=== PATIENT | female | born 1945 | race African-American/Black ===

== ENCOUNTER 2018-04-11 21:30 | Inpatient (IN) ==
[2018-04-11] MEDS: NS 1000 ML 1,000 ML IV SCH (22:13)
[2018-04-11 22:25] LABS: BASOPHILS # (AUTO) 0.1 X10^3/uL (0.0-0.1); BASOPHILS % (AUTO) 0.7 % (0.2-1.0); EOSINOPHILS # (AUTO) 0.3 x10^3/uL (0.0-0.2); HEMATOCRIT 24.5 % (36.0-47.0); HEMOGLOBIN 8.4 g/dL (12.0-16.0); LYMPHOCYTES # (AUTO) 3.9 X10^3/uL (1.3-2.9); LYMPHOCYTES % (AUTO) 36.6 % (21.0-51.0); MEAN CORPUSCULAR HEMOGLOBIN 29.1 pg (27.0-34.0); MEAN CORPUSCULAR HGB CONC 34.4 g/dL (33.0-35.0); MEAN CORPUSCULAR VOLUME 84.7 fL (80.0-100.0); MEAN PLATELET VOLUME 8.5 fL (7.4-11.0); MONOCYTES # (AUTO) 0.6 x10^3/uL (0.3-0.8); MONOCYTES % (AUTO) 5.5 % (0.0-13.0); NEUTROPHILS # (AUTO) 5.8 x10^3/uL (2.2-4.8); NEUTROPHILS % (AUTO) 54.2 % (42.0-75.0); PLATELET COUNT 189 X10^3/uL (150.0-450.0); RED BLOOD COUNT 2.89 X10^6/uL (3.5-5.4); RED CELL DISTRIBUTION WIDTH 13.2 % (11.6-16.5); WHITE BLOOD COUNT 10.7 X10^3/uL (3.6-10.0)
[2018-04-11 22:34] LABS: BLOOD UREA NITROGEN 17 mg/dL (7-18); CALCIUM 8.4 mg/dL (8.5-10.1); CARBON DIOXIDE 23.8 mmol/L (21-32); CHLORIDE 102 mmol/L (98-107); COR NA(FOR HYPERGLY) 139 mmol/L (136-145); CREATININE 0.72 mg/dL (0.55-1.02); SODIUM 138 mmol/L (136-145); eGFR NON BLACK RACES > 60 (>60)
[2018-04-11 22:38] LABS: ALANINE AMINOTRANSFERASE 18 Units/L (12-78); ALBUMIN 2.8 g/dL (3.4-5.0); ALKALINE PHOSPHATASE 66 Units/L (46-116); AMYLASE 38 Units/L (25-115); ASPARTATE AMINO TRANSFERASE 7 Units/L (15-37); COR CA(FOR HYPOALB) 9.4 mg/dL (8.5-10.1); LIPASE 110 Units/L (73-393)
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
[2018-04-11] MEDS ORDERED: ZOFRAN SYRUP 4 MG UDC PO ONE (23:10)
[2018-04-11] MEDS ORDERED: K-LYTE EFFERVESCENT PO ONE (23:14)
[2018-04-11] MEDS ORDERED: PROTONIX INJ 40 MG VIAL ONE (23:20)
[2018-04-11] MEDS ORDERED: K-LYTE EFFERVESCENT ONE (23:20)
[2018-04-11] MEDS ORDERED: NS 100 ML IV 100 ML IV ONE (23:21)
[2018-04-11] MEDS ORDERED: ZOFRAN SYRUP 4 MG UDC ONE (23:21)
[2018-04-11] MEDS: PROTONIX INJ 40 MG VIAL 80 MG in NS 100 ML IV 80 ML IV SCH (23:40)
[2018-04-12 00:11] LABS: HEMOGLOBIN 7.7 g/dL (12.0-16.0)
[2018-04-12 00:14] LABS: HEMATOCRIT 22.4 % (36.0-47.0)
[2018-04-12] MEDS ORDERED: ZOFRAN INJ 4 MG VIAL IVP PRN (00:40)
[2018-04-12] MEDS ORDERED: TYLENOL 325 MG TAB PO ONE (00:54)
[2018-04-12] MEDS ORDERED: BENADRYL INJ 50 MG VIAL IV ONE (00:54)
--- NOTE | 2018-04-12 01:02 | DR.GIBLEED ---
HPI Time Seen Time seen: 21:50 Primary Care Physician Primary Care Physician: YE HPI Comment HPI Comment: PATIENT SAID BLEEDING IS GETTING WORSE AND SHE IS WEAK AND DIZZY. SHE DENIES USE ANTICOAGULATING MEDICATIONS. DENIES FEVER. ABDOMINAL PAIN IS WORSE IN LLQ AREA. DENIES HEMATEMESIS. NAUSEATED BUT NOOT VOMITING. Complaints Chief Complaint Doctors Comments: GI BLEEDING WITH LOWER ABDOMINAL PAIN 3 DAYS. Chief Complaint:: ABDOMNIAL PAIN AND RECTAL BLEEDING WITH BOWEL MOVEMENT SINCE TUESDAY. Reviewed Nurses Notes Reviewed: Yes Source History Provided: Patient, Family Member and EMS Mode of Arrival Mode of Arrival: EMS Timing Onset of Chief Complaint: 04/09/18 Duration Bleeding: Currently Present Duration: Days Quality Vomitus: None Stools: Bright Red Blood History Of: None Prehospital Care:: None Severity Severity: Moderate Measure: Cups Context Onset: Spontaneous and After bowel movement (LAST EPISODE WITHOUT BM.) Recent Use Of: None Associated Signs and Symptoms Associated Signs and Symptoms: Abdominal Pain and Faintness (NEAR SYNCOPAL FEELING TODAY.) PMH PMH Past Medical History: Yes Past Medical History: Hypertension Past Surgical History: No Family History History of Family Medical Conditions: Yes Family Medical History: Diabetes Mellitus and Hypertension Social History Does patient currently use any type of tobacco product: Yes Have you used tobacco products in the last 12 months: Yes Type of Tobacco Use: Cigarettes Does any household member use tobacco: No Alcohol Use: None Do you use any recreational Drugs:: No Lives With: Family Lives Where: Home infectious screening In the last 2 months have you had wt loss of >10#?: NO Have you had fever, night sweats or hemotysis?: No Have you traveled outside the country in the last 6 months?: No Isolation: Standard ROS Review of Systems Constitutional: Weakness and Fatigue; negative Chills, Diaphoresis and Fever Eyes: Other (CONJUNCTIVA PALE.) ENTM: No Symptoms Reported Respiratoy: Short of Breath Cardiovascular: negative Syncope (NEAR SYMCOPAL FEELING.) Gastrointestinal/Abdominal: Abdominal Pain, Nausea and Other (GI BLEEDING.) Genitourinary: Pain and Other (RECTAL BEEDING.) Neurological: Anxiety, Weakness and Dizziness Musculoskeletal: No Symptoms Reported Integumentary: No Symptoms Reported Hematologic/Lymphatic: No Symptoms Reported Endocrine: No Symptoms Reported Psychiatric: No Symptoms Reported All Other Systems: Reviewed and Negative PE Vital Signs Vitals: Pulse Rate 92 Respiratory Rate 18 Blood Pressure 155/68 O2 Sat by Pulse Oximetry 98 General Limitations: No Limitations General Appearance: Alert and In No Apparent Distress Head Head Exam: Normal Inspection, Atraumatic and Normocephalic Eyes Eye exam: PERRL, EOMI and Other (CONJUNCTIVA PALE.); negative Scleral Icterus ENT ENT Exam: Normal Exam, Normal Oropharynx and Normal External Ear Exam Neck Neck Exam: Normal Inspection and Trachea Midline; negative Tenderness and Meningismus Chest Chest Inspection: Normal Inspection and Symmetric Chest Wall Rise Respiratory Respiratory Exam: Normal Lung Sounds Bilat; negative Chest Wall Tenderness Respiratory Exam: Bilateral: Clear to Auscultation Cardiovascular Cardiovascular Exam: Regular Rate, Normal Rhythm and Normal Heart Sounds Abdominal Exam Abdominal Exam: Normal Bowel Sounds, Soft and Tenderness Abdominal Tenderness: LLQ and Diffuse Rectal Rectal Exam: Normal Rectal Tone, Heme (+) Stool, Bloody Stool and Other; negative Normal Inspection, Hemorrhoids and Tenderness Extremities Extremities Exam: Normal Inspection Back Back Exam: Normal Inspection Neurologic Neurological Exam: Alert, Oriented X3 and CN II-XII Intact; negative Motor Sensory Deficit Psychiatric Psychiatric Exam: Normal Affect and Normal Mood Skin Skin Exam: Warm, Dry and Intact DIFFERENTIAL DIAGNOSIS Additional Information Obtained Additional Information Obtained From: Family Differential Diagnosis Differential Diagnosis: Angiodysplasia, Diverticulosis, Gastritis, Inflammatory BD, PUD and Other (BOWEL OBST, DIVERTICULITIS) COURSE Treatment Treatment: SEE ORDERS. Consultation Consultation Comments: DISCUSS PATIENT WITH DR. PEDROZA. HE WILL ADMIT PATIENT. Education/Counseling Education/Counseling: Patient, Family and Education Educated On: Diagnosis ROR Labs Reviewed Laboratory Results Reviewed?: Yes Result Diagrams: 04/11/18 23:59 04/11/18 22:19 Laboratory: WBC 10.7 X10^3/uL (3.6-10.0) H 04/11/18 22:19 RBC 2.89 X10^6/uL (3.5-5.4) L 04/11/18 22:19 Hgb 7.7 g/dL (12.0-16.0) L 04/11/18 23:59 Hct 22.4 % (36.0-47.0) L 04/11/18 23:59 MCV 84.7 fL (80.0-100.0) 04/11/18 22:19 MCH 29.1 pg (27.0-34.0) 04/11/18 22:19 MCHC 34.4 g/dL (33.0-35.0) 04/11/18 22:19 RDW 13.2 % (11.6-16.5) 04/11/18 22:19 Plt Count 189 X10^3/uL (150.0-450.0) 04/11/18 22:19 MPV 8.5 fL (7.4-11.0) 04/11/18 22:19 Neut % (Auto) 54.2 % (42.0-75.0) 04/11/18 22:19 Lymph % (Auto) 36.6 % (21.0-51.0) 04/11/18 22:19 [place] % (Auto) 5.5 % (0.0-13.0) 04/11/18 22:19 Eos % (Auto) 3.0 % (0.9-2.9) H 04/11/18 22:19 Baso % (Auto) 0.7 % (0.2-1.0) 04/11/18 22:19 Neut # (Auto) 5.8 x10^3/uL (2.2-4.8) H 04/11/18 22:19 Lymph # (Auto) 3.9 X10^3/uL (1.3-2.9) H 04/11/18 22:19 [place] # (Auto) 0.6 x10^3/uL (0.3-0.8) 04/11/18 22:19 Eos # (Auto) 0.3 x10^3/uL (0.0-0.2) H 04/11/18 22:19 Baso # (Auto) 0.1 X10^3/uL (0.0-0.1) 04/11/18 22:19 Absolute Nucleated RBC 0.0 /100WBC 04/11/18 22:19 INR Target Range - 04/11/18 22:19 INR 1.08 (0.8-1.3) 04/11/18 22:19 APTT 26.4 SECONDS (22.9-36.5) 04/11/18 22:19 PTT Comment - 04/11/18 22:19 Sodium 138 mmol/L (136-145) 04/11/18 22:19 Corrected Sodium 139 mmol/L (136-145) 04/11/18 22:19 Potassium 3.0 mmol/L (3.5-5.1) L* 04/11/18 22:19 Chloride 102 mmol/L (98-107) 04/11/18 22:19 Carbon Dioxide 23.8 mmol/L (21-32) 04/11/18 22:19 BUN 17 mg/dL (7-18) 04/11/18 22:19 Creatinine 0.72 mg/dL (0.55-1.02) 04/11/18 22:19 Est GFR (MDRD) Af Amer > 60 (>60) 04/11/18 22:19 Est GFR (MDRD) Non-Af > 60 (>60) 04/11/18 22:19 Glucose 131 mg/dL (65-99) H 04/11/18 22:19 Calcium 8.4 mg/dL (8.5-10.1) L 04/11/18 22:19 Corrected Calcium 9.4 mg/dL (8.5-10.1) 04/11/18 22:19 Total Bilirubin 0.10 mg/dL (0.2-1.0) L 04/11/18 22:19 AST 7 Units/L (15-37) L 04/11/18 22:19 ALT 18 Units/L (12-78) 04/11/18 22:19 Alkaline Phosphatase 66 Units/L (46-116) 04/11/18 22:19 Total Protein 6.0 g/dL (6.4-8.2) L 04/11/18 22:19 Albumin 2.8 g/dL (3.4-5.0) L 04/11/18 22:19 Globulin 3.2 g/dL (2.5-4.5) 04/11/18 22:19 Albumin/Globulin Ratio 0.9 Ratio (1.1-2.1) L 04/11/18 22:19 Amylase 38 Units/L (25-115) 04/11/18 22:19 Lipase 110 Units/L (73-393) 04/11/18 22:19 Stool Description Fob tube 04/11/18 22:02 Stl Occult Blood (IFOB) Positive (NEGATIVE) A 04/11/18 22:02 Diagnosis Discharge Problem: Abdominal pain, Acute GI bleeding, Anemia, Acute hypokalemia
[2018-04-12 02:12] VITALS: BMI 18.1
[2018-04-12] MEDS ORDERED: NS 500 ML IV 500 ML IV ONE (02:47)
[2018-04-12] MEDS: NS 1000 ML 1,000 ML IV SCH ×2 (05:24→13:08)
[2018-04-12 07:52] LABS: BASOPHILS # (AUTO) 0.1 X10^3/uL (0.0-0.1); EOSINOPHILS # (AUTO) 0.2 x10^3/uL (0.0-0.2); EOSINOPHILS % (AUTO) 1.5 % (0.9-2.9); HEMATOCRIT 22.3 % (36.0-47.0); HEMOGLOBIN 7.8 g/dL (12.0-16.0); LYMPHOCYTES # (AUTO) 4.3 X10^3/uL (1.3-2.9); LYMPHOCYTES % (AUTO) 37.4 % (21.0-51.0); MEAN CORPUSCULAR HEMOGLOBIN 29.5 pg (27.0-34.0); MEAN CORPUSCULAR HGB CONC 35.2 g/dL (33.0-35.0); MEAN PLATELET VOLUME 9.4 fL (7.4-11.0); MONOCYTES # (AUTO) 0.7 x10^3/uL (0.3-0.8); MONOCYTES % (AUTO) 6.2 % (0.0-13.0); NEUTROPHILS # (AUTO) 6.2 x10^3/uL (2.2-4.8); NEUTROPHILS % (AUTO) 53.9 % (42.0-75.0); PLATELET COUNT 144 X10^3/uL (150.0-450.0); RED BLOOD COUNT 2.65 X10^6/uL (3.5-5.4); RED CELL DISTRIBUTION WIDTH 13.6 % (11.6-16.5); WHITE BLOOD COUNT 11.6 X10^3/uL (3.6-10.0)
[2018-04-12 07:58] LABS: ANISOCYTOSIS SLIGHT; HYPOCHROMASIA 1+; PLATELET MORPHOLOGY COMMENT NORMAL (NORMAL)
[2018-04-12 08:00] LABS: ALANINE AMINOTRANSFERASE 15 Units/L (12-78); ALBUMIN 2.3 g/dL (3.4-5.0); ALKALINE PHOSPHATASE 51 Units/L (46-116); ASPARTATE AMINO TRANSFERASE 8 Units/L (15-37); BLOOD UREA NITROGEN 19 mg/dL (7-18); CALCIUM 7.5 mg/dL (8.5-10.1); CARBON DIOXIDE 26.2 mmol/L (21-32); CHLORIDE 107 mmol/L (98-107); COR CA(FOR HYPOALB) 8.9 mg/dL (8.5-10.1); COR NA(FOR HYPERGLY) 140 mmol/L (136-145); CREATININE 0.59 mg/dL (0.55-1.02); SODIUM 140 mmol/L (136-145); TOTAL PROTEIN 4.9 g/dL (6.4-8.2); eGFR NON BLACK RACES > 60 (>60)
[2018-04-12] MEDS ORDERED: NS 500 ML IV 500 ML IV SCH ×2 (08:00→10:00)
[2018-04-12] MEDS ORDERED: CIPRO IV 400 MG PREMIX* 400 MG/200 ML IV.SOLN. IV SCH (09:00)
[2018-04-12] MEDS ORDERED: FLAGYL IV PREMIX 500 MG BAG 500 MG/100 ML BAG IV SCH (09:00)
[2018-04-12] MEDS: PROTONIX INJ 40 MG VIAL 80 MG in NS 100 ML IV 80 ML IV SCH ×2 (09:57→10:35)
[2018-04-12] MEDS ORDERED: K-LYTE EFFERVESCENT PO PRN ×2 (10:36→10:37)
[2018-04-12] MEDS ORDERED: POTASSIUM CHLORIDE LIQ 20 MEQ UDC PO PRN (10:36)
[2018-04-12] MEDS ORDERED: POTASSIUM CHL 40 MEQ/NS 0.45% 500 ML IV PRN (10:36)
[2018-04-12] MEDS ORDERED: POTASSIUM CHL 60 MEQ/NS 0.45% 500 ML IV PRN (10:36)
[2018-04-12] MEDS ORDERED: K-RIDER 10 MEQ/NS 100 ML 10 MEQ/100 ML BAG IV PRN ×2 (10:36→10:37)
[2018-04-12 12:01] LABS: HEMATOCRIT 22.6 % (36.0-47.0); HEMOGLOBIN 7.9 g/dL (12.0-16.0)
[2018-04-12] MEDS: MAGNESIUM SULFATE 1 GRAM/100 mL PREMIX 1 GM/100 ML BAG IV PRN ×2 (12:32→13:37)
--- NOTE | 2018-04-12 13:06 | DR.H&P ---
H&P - History & Physical for Day of: H&P Date: 04/12/18 - Chief Complaint Chief Complaint: abdominal pain, rectal bleeding - History of Present Illness History of Present Illness: is a 72 year old patient of who presented to the emergency room via EMS on last night with reports of rectal bleeding. Patient reports bleeding started on Tuesday and has become worse over the last three days. Bleeding reportedly started spontaneously after a bowel movement. Patient reports that now, copious amounts of blood is draining from rectum whenever she stands. Associated symptoms include weakness, dizziness, nausea, and abdominal pain. On examination, patient is noted with left lower quadrant abdominal tenderness. On arrival, vitals were 97.7, 99, 17, 98% RA, 125/61. Labs were obtained. Abnormal Labs included the following: (04/11) WBC 10.7, RBC 2.89, Hgb 8.4, 7.7 at midnight, Hct 24.5, 22.4, Eos% 3.0, Neut# 5.8, Lymph# 3.9, Eos# 0.3, Potassium 3.0, Glucose 131, Calcium 8.4, Total Bilirubin 0.10, AST 7, Total Protein 6.0, Albumin 2.8, A/G Ratio 0.9. This morning, labs are as follows: WBC 11.6, RBC 2.65, Hgb 7.8, Hct 22.3, MCHC 35.2, Plt Count 144, Neut# 6.2, Lymph# 4.3, RBC Morphology Abnormal, Hypochromasia 1+ , Anisocytosis Slight, BUN 19, Glucose 119, Calcium 7.5, Magnesium 1.5, AST 8, Total Protein 4.9, Albumin 2.3, A/G Ratio 0.9. Stools are positive for occult blood. An abdomen and pelvis CT was obtained and revealed findings suggestive for acute diverticulitis of the descending colon and moderate thickening of the transverse colon, which could also represent colitis. When hemoglobin dropped to 7.7 two units of PRBCs started and patient pre-medicated with Tylenol 650mg and Benadryl 25mg. Patient started on IV fluids at 125ml/hr, Protonix drip at 10ml/hr, Cipro 400mg IV q12h, and Flagyl 500mg IV q6h for the diverticulitis. Plans are to obtain serial H&Hs and will transfuse additional units as needed. Dr. Don, general surgeon, was consulted and will see patient this morning. We will hold patient NPO at this time. - Past Medical History Past Medical History: Anxiety, Depression, Hypertension - Past Surgical History Surgical History: Abdominal Surgery Additional Surgical History: exploratory laparotomy - Family History Family Medical History: Diabetes Mellitus, Cancer, Hypertension - Social History Does patient currently use any type of tobacco product: Yes Have you used tobacco products in the last 12 months: Yes Type of Tobacco Use: Cigarettes How many years tobacco product used: 50 Does any household member use tobacco: No Alcohol Use: None Drug Use: None - Medications Home Medications: Sulfa (Sulfonamide Antibiotics) [SULFA] Allergy (Verified 04/11/18 22:03) CONTINUE taking the following medications NK 04/12/18 [History] - Review of Systems Constitutional: See HPI, Malaise Eyes: No Symptoms Reported ENT: No Symptoms Reported Cardiovascular: Light Headedness Gastrointestinal: See HPI, Nausea, Abdominal Pain, Hematochezia Genitourinary: No Symptoms Reported Musculoskeletal: No Symptoms Reported Skin: No Symptoms Reported Neurological: Weakness - Physical Exam Vital Signs: Temperature 98.5 F Pulse Rate [Right] 102 Pulse Rate 92 Respiratory Rate 17 Blood Pressure [Right Arm] 104/55 Blood Pressure 155/68 O2 Sat by Pulse Oximetry 100 Oriented: Normal Eyes: Normal Ear: Normal Nose: Normal Throat: Normal Respiratory: Diminished Throughout Cardiovascular: Normal. negative: S3, S4, Murmur : Bleeding Auscultation: Bowel Sounds: Normal Palpation: Normal Tenderness: Diffuse, LLQ, Moderate. negative: Rebound, Guarding, Rigidity Skin: Normal Musculoskeletal: Normal Psychiatric: Normal Mood Description: Calm Affect: Normal Speech Pattern: Clear - Assessment/Plan (1) Acute GI bleeding Status: Acute Plan: admit, transfuse two units prbc, protonix drip, consult general surgery, continue to monitor (2) Diverticulitis Status: Acute Plan: cipro iv and flagyl iv, continue to monitor (3) Anemia Qualifiers: Anemia type: other cause Other causes of anemia: acute posthemorrhagic Qualified Code(s): D62 - Acute posthemorrhagic anemia Status: Acute Plan: transfuse two units prbc, protonix drip, continue to monitor (4) Acute hypokalemia Status: Acute Plan: potassium protocol - Allergies Allergies/Adverse Reactions: Allergies Allergy/AdvReac Type Severity Reaction Status Date / Time Sulfa (Sulfonamide Allergy Verified 04/11/18 22:03 Antibiotics) [SULFA]
[2018-04-12 13:07] VITALS: BP 98/56
--- NOTE | 2018-05-11 | DR.CARTERD ---
- Discharge Summary for: Discharge Summary for Date of:: 04/12/18 - Admission Date Date of Admission: 04/12/18 - Admission Diagnoses Admission Diagnosis: (1) Acute GI bleeding (2) Diverticulitis (3) Anemia (4) Acute hypokalemia - Discharge Date Discharge Date: 04/12/18 - Discharge Diagnoses Discharge Diagnosis: (1) Acute GI bleeding (2) Diverticulitis (3) Anemia (4) Acute hypokalemia - Hospital Course Hospital Course: Day one, Ms. Lazo is a [address] Herrera who presented to the emergency room via EMS on last night with reports of rectal bleeding. Patient reported bleeding started on Tuesday and had become worse over the last three days. Bleeding reportedly started spontaneously after a bowel movement. Patient reported that copious amounts of blood was draining from rectum whenever she stood. Associated symptoms included weakness, dizziness, nausea, and abdominal pain. On examination, patient was noted with left lower quadrant abdominal tenderness. On arrival, vitals were 97.7, 99, 17, 98% RA, 125/61. Labs were obtained. Abnormal Labs included the following: (04/11/18) WBC 10.7, RBC 2.89, Hgb 8.4, 7.7 at midnight, Hct 24.5, 22.4, Eos% 3.0, Neut# 5.8, Lymph# 3.9, Eos# 0.3, Potassium 3.0, Glucose 131, Calcium 8.4, Total Bilirubin 0.10, AST 7, Total Protein 6.0, Albumin 2.8, A/G Ratio 0.9. Labs for 04/12/18 are as follows: WBC 11.6, RBC 2.65, Hgb 7.8, Hct 22.3, MCHC 35.2, Plt Count 144, Neut# 6.2, Lymph# 4.3, RBC Morphology Abnormal, Hypochromasia 1+, Anisocytosis Slight , BUN 19, Glucose 119, Calcium 7.5, Magnesium 1.5, AST 8, Total Protein 4.9, Albumin 2.3, A/G Ratio 0.9. Stools were positive for occult blood. An abdomen and pelvis CT was obtained and revealed findings suggestive for acute diverticulitis of the descending colon and moderate thickening of the transverse colon, which could also represent colitis. When hemoglobin dropped to 7.7, two units of PRBCs started and patient was pre-medicated with Tylenol 650mg and Benadryl 25mg. Patient started on IV fluids at 125ml/hr, Protonix drip at 10ml/hr, Cipro 400mg IV q12h, and Flagyl 500mg IV q6h for the diverticulitis. We obtained serial H&Hs. Dr. Don, general surgeon, was consulted. We held patient NPO. Patient continued with severe rectal bleeding. Dr. Don consulted and recommended transferring patient to tertiary care center. Dr. Gong at [facility] accepted patient. Patient had received three units of PRBC's and was receiving a fourth unit upon discharge. Patient was transferred via EMS in stable condition. - Discharge Medications Discharge Medications: Home Medication List NK 04/12/18 [History] Prescriptions: - Discharge Disposition Discharge Disposition: Patient is to follow up in our office upon discharge from [facility].
== END 2018-04-12 13:55 | disposition short-term general hospital (02) | DRG 378 ==
LOC: ER 21:37 → ICU 04-12 00:40
PROVIDERS: ADMIT Internal Medicine; ATTEND Internal Medicine
CPT/HCPCS: 36415; 36430; 74176; 80053; 82150; 82270; 83690; 83735; 85014; 85018; 85025; 85610; 85730; 86850; 86900; 86901; 86922; 96365; 96367; 96374; 99283; 99285; A4216; A4222; C9113; P9016; S0030; J0744; J1200; J3475; J3490; J7030; J7040; J7050; J8499; Q0162

== ENCOUNTER 2023-07-16 04:39 | Inpatient (IN) ==
[2023-07-16] MEDS ORDERED: NovoLIN R (or HumuLIN R) IV STA (04:55)
[2023-07-16] MEDS ORDERED: APRESOLINE INJ 20 MG VIAL IVP ONE ×2 (04:55→07:13)
[2023-07-16] MEDS ORDERED: NovoLIN R (or HumuLIN R) ONE ×2 (04:57→05:28)
[2023-07-16] MEDS ORDERED: NS 1,000 ML IV 1,000 ML IV ONE ×3 (05:08→10:18)
[2023-07-16] MEDS ORDERED: ATIVAN INJ 2 MG VIAL IVP ONE (05:08)
[2023-07-16] MEDS ORDERED: ATIVAN INJ 2 MG VIAL ONE (05:08)
[2023-07-16] MEDS ORDERED: NS 1,000 ML IV 1,000 ML ONE ×3 (05:09→07:31)
[2023-07-16 05:17] LABS: BASOPHILS # (AUTO) 0.1 X10^3/uL (0.0-0.1); BASOPHILS % (AUTO) 0.8 % (0.2-1.0); EOSINOPHILS % (AUTO) 0.4 % (0.9-2.9); HEMATOCRIT 47.4 % (36.0-47.0); HEMOGLOBIN 13.5 g/dL (12.0-16.0); LYMPHOCYTES # (AUTO) 0.6 X10^3/uL (1.3-2.9); LYMPHOCYTES % (AUTO) 8.2 % (21.0-51.0); MEAN CORPUSCULAR HGB CONC 28.5 g/dL (33.0-35.0); MEAN CORPUSCULAR VOLUME 91.2 fL (80.0-100.0); MEAN PLATELET VOLUME 10.8 fL (7.4-11.0); MONOCYTES # (AUTO) 0.3 x10^3/uL (0.3-0.8); MONOCYTES % (AUTO) 4.7 % (0.0-13.0); NEUTROPHILS # (AUTO) 6.3 x10^3/uL (2.2-4.8); NEUTROPHILS % (AUTO) 85.9 % (42.0-75.0); PLATELET COUNT 210 X10^3/uL (150.0-450.0); RED BLOOD COUNT 5.19 X10^6/uL (3.5-5.4); RED CELL DISTRIBUTION WIDTH 19.8 % (11.6-16.5); WHITE BLOOD COUNT 7.4 X10^3/uL (3.6-10.0)
--- NOTE | 2023-07-16 05:17 | EKG ---
Test Reason : tachy Blood Pressure : */* mmHG Vent. Rate : 137 BPM Atrial Rate : 137 BPM P-R Int : 94 ms QRS Dur : 96 ms QT Int : 374 ms P-R-T Axes : 79 85 58 degrees QTc Int : 564 ms Critical Test Result: STEMI Sinus tachycardia with short GA Moderate voltage criteria for LVH, may be normal variant ( Sokolow-Pineda , Harriet product ) ST depression, consider subendocardial injury ACUTE DE / STEMI Abnormal ECG No previous ECGs available Confirmed by Paolo Garza ([id number]) on 07/18/2023 9:59:20 AM Referred By: Confirmed By: Paolo Garza
[2023-07-16 05:28] LABS: ALANINE AMINOTRANSFERASE 14 Units/L (12-78); ALBUMIN 3.7 g/dL (3.4-5.0); ALKALINE PHOSPHATASE 242 Units/L (46-116); ASPARTATE AMINO TRANSFERASE 9 Units/L (15-37); BLOOD UREA NITROGEN 7 mg/dL (7-18); CALCIUM 9.8 mg/dL (8.5-10.1); CARBON DIOXIDE 21.1 mmol/L (21-32); CHLORIDE 82 mmol/L (98-107); CREATINE KINASE 45 Units/L (26-192); CREATININE 1.74 mg/dL (0.55-1.02); INR 1.25 (0.8-1.3); POTASSIUM 3.5 mmol/L (3.5-5.1); TOTAL PROTEIN 8.9 g/dL (6.4-8.2); eGFR NON BLACK RACES 30 (>60)
--- NOTE | 2023-07-16 05:36 | EKG ---
Test Reason : AMS Blood Pressure : */* mmHG Vent. Rate : 116 BPM Atrial Rate : 116 BPM P-R Int : 146 ms QRS Dur : 92 ms QT Int : 360 ms P-R-T Axes : 78 100 59 degrees QTc Int : 500 ms Sinus tachycardia Rule out inferior wall ischemia Right atrial enlargement Rightward axis Pulmonary disease pattern Biventricular hypertrophy Abnormal ECG When compared with ECG of 16-JUL-2023 05:14, (Unconfirmed) ST less depressed in Inferior leads Confirmed by Paolo Garza ([id number]) on 07/18/2023 10:02:50 AM Referred By: Confirmed By: Paolo Garza
[2023-07-16 05:39] LABS: BILIRUBIN,URINE NEGATIVE (NEGATIVE); BLOOD/HEMOGLOBIN,URINE NEGATIVE (NEGATIVE); GLUCOSE, URINE 4+ (NEGATIVE); KETONES,URINE NEGATIVE (NEGATIVE); LEUKOCYTE ESTERASE ,URINE NEGATIVE (NEGATIVE); NITRITES,URINE POSITIVE (NEGATIVE); PH,URINE 6.5 (5.0 - 8.0); PROTEIN,URINE 2+ (NEGATIVE); UROBILINOGEN,URINE 1+ (NORMAL)
[2023-07-16 05:43] LABS: COR NA(FOR HYPERGLY) 152 mmol/L (136-145); GLUCOSE 1350 mg/dL (65-99); SODIUM 122 mmol/L (136-145)
[2023-07-16 05:47] LABS: APPEARANCE,URINE CLEAR (CLEAR); BACTERIA,URINE 1+ /HPF (NEGATIVE); COLOR,URINE YELLOW (YELLOW); RBC,URINE 0-2 /HPF (0-3); SQUAMOUS EPITHELIAL CELL,UR RARE /HPF (NEGATIVE)
--- NOTE | 2023-07-16 06:03 | CT ---
EXAM:BRAIN W/O CONHISTORY:UNRESPONSIVE; ems dispatched to female passed out pt was unresponsive.COMPARISON:NoneTECHNIQUE:CT of the head obtained without IV contrast. Sagittal and coronal reformatted images were performed. Dose reduction techniques including Automated Exposure Control (AEC) and adjustment of mA and kV were utilized.FINDINGS:No evidence of acute territorial infarct. No acute intracranial hemorrhage. No evidence of intracranial mass or midline shift. No hydrocephalus. No abnormal intra or extra-axial fluid collections.The calvaria is intact. The bilateral mastoid air cells and visualized paranasal sinuses are well pneumatized. The bilateral orbits are unremarkable.IMPRESSION:No acute intracranial findings.THIS IS AN ELECTRONICALLY VERIFIED FINAL [id number]/2023 6:00 AM - Electronically signed by Lei Estrella MD
[2023-07-16 06:05] LABS: SERUM ACETONE NEGATIVE (NEGATIVE)
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
[2023-07-16] MEDS ORDERED: ULTRAM PO ONE (06:21)
[2023-07-16] MEDS ORDERED: ROCEPHIN VIAL 1 GRAM IM ONE (06:21)
[2023-07-16 06:35] LABS: GLUCOSE 1226 mg/dL (65-99)
[2023-07-16] MEDS ORDERED: MYXREDLIN 100 UNIT/100 ML BAG 100 UNIT/100 ML PLAST..BAG IV ONE (06:37)
[2023-07-16] MEDS ORDERED: MYXREDLIN 100 UNIT/100 ML BAG 100 UNIT/100 ML PLAST..BAG IV PRN ×2 (06:53→07:35)
[2023-07-16] MEDS ORDERED: APRESOLINE INJ 20 MG VIAL ONE (07:16)
[2023-07-16] MEDS ORDERED: NovoLIN R (or HumuLIN R) IV PRN (07:35)
[2023-07-16] MEDS ORDERED: D50W ABBOJECT SYR IV PRN (07:35)
[2023-07-16] MEDS: NS 1,000 ML IV 1,000 ML IV SCH ×3 (07:39→16:44)
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
[2023-07-16] MEDS ORDERED: NovoLIN R (or HumuLIN R) IV ONE (08:34)
[2023-07-16] MEDS ORDERED: LR 1,000 ML IV 1,000 ML IV ONE (10:17)
[2023-07-16 10:56] VITALS: BMI 16.8
[2023-07-16] MEDS: LEVAQUIN PREMIX IV 500 MG 500 MG/100 ML BAG IV SCH (11:13)
[2023-07-16] MEDS ORDERED: APRESOLINE INJ 20 MG VIAL IVP PRN (11:24)
[2023-07-16] MEDS: SNACK - Diabetic Appropriate PO SCH (19:18)
[2023-07-16 20:46] LABS: MAGNESIUM 1.4 mg/dL (2.0-2.9); POTASSIUM 3.4 mmol/L (3.5-5.1)
[2023-07-16] MEDS ORDERED: CONSULT PHARMACY - POTASSIUM & MAGNESIUM XX SCH (21:01)
[2023-07-16] MEDS: MAGNESIUM SULFATE 1 GRAM/100 mL PREMIX 1 G/100 ML BAG IV SCH ×2 (21:53→22:50)
[2023-07-16] MEDS: NovoLIN R (or HumuLIN R) SC PRN (21:53)
[2023-07-16] MEDS ORDERED: MAG-OX TAB PO SCH (22:00)
[2023-07-16] MEDS ORDERED: MICRO K EXTEN CAP 10 MEQ PO SCH (22:00)
[2023-07-17] MEDS ORDERED: K-RIDER 10 MEQ/NS 100 ML 10 MEQ/100 ML BAG IV ONE
[2023-07-17] MEDS: NS 1,000 ML IV 1,000 ML IV SCH ×3 (01:33→17:27)
[2023-07-17 05:29] LABS: BASOPHILS # (AUTO) 0.1 X10^3/uL (0.0-0.1); BASOPHILS % (AUTO) 0.7 % (0.2-1.0); EOSINOPHILS # (AUTO) 0.1 x10^3/uL (0.0-0.2); EOSINOPHILS % (AUTO) 0.8 % (0.9-2.9); HEMATOCRIT 38.6 % (36.0-47.0); HEMOGLOBIN 12.1 g/dL (12.0-16.0); LYMPHOCYTES # (AUTO) 1.6 X10^3/uL (1.3-2.9); LYMPHOCYTES % (AUTO) 12.1 % (21.0-51.0); MEAN CORPUSCULAR HEMOGLOBIN 25.6 pg (27.0-34.0); MEAN CORPUSCULAR HGB CONC 31.4 g/dL (33.0-35.0); MEAN CORPUSCULAR VOLUME 81.6 fL (80.0-100.0); MEAN PLATELET VOLUME 10.3 fL (7.4-11.0); MONOCYTES % (AUTO) 7.4 % (0.0-13.0); NEUTROPHILS # (AUTO) 10.2 x10^3/uL (2.2-4.8); PLATELET COUNT 167 X10^3/uL (150.0-450.0); RED BLOOD COUNT 4.73 X10^6/uL (3.5-5.4); RED CELL DISTRIBUTION WIDTH 19.1 % (11.6-16.5); WHITE BLOOD COUNT 12.9 X10^3/uL (3.6-10.0)
[2023-07-17 05:39] LABS: ALANINE AMINOTRANSFERASE 12 Units/L (12-78); ALBUMIN 2.3 g/dL (3.4-5.0); ALKALINE PHOSPHATASE 156 Units/L (46-116); ASPARTATE AMINO TRANSFERASE 14 Units/L (15-37); BLOOD UREA NITROGEN 9 mg/dL (7-18); CALCIUM 8.1 mg/dL (8.5-10.1); CARBON DIOXIDE 24.3 mmol/L (21-32); CHLORIDE 105 mmol/L (98-107); COR CA(FOR HYPOALB) 9.5 mg/dL (8.5-10.1); COR NA(FOR HYPERGLY) 141 mmol/L (136-145); CREATININE 0.84 mg/dL (0.55-1.02); GLUCOSE 199 mg/dL (65-99); MAGNESIUM 1.9 mg/dL (2.0-2.9); POTASSIUM 3.1 mmol/L (3.5-5.1); SODIUM 139 mmol/L (136-145); TOTAL PROTEIN 6.2 g/dL (6.4-8.2); eGFR NON BLACK RACES > 60 (>60)
[2023-07-17] MEDS: NovoLIN R (or HumuLIN R) SC PRN ×2 (05:44→13:24)
[2023-07-17] MEDS ORDERED: CONSULT PHARMACY - POTASSIUM & MAGNESIUM XX SCH (07:00)
[2023-07-17] MEDS ORDERED: MAG-OX TAB PO SCH (08:00)
[2023-07-17] MEDS: K-DUR TAB 20 MEQ PO SCH ×4 (08:36→20:17)
[2023-07-17] MEDS: MICARDIS PO SCH (08:36)
[2023-07-17] MEDS: MAGNESIUM SULFATE 1 GRAM/100 mL PREMIX 1 G/100 ML BAG IV SCH ×2 (08:36→13:27)
[2023-07-17] MEDS: ACTOS PO SCH (08:36)
[2023-07-17] MEDS: GLUCOPHAGE XR 24-HR PO SCH ×2 (08:36→20:17)
[2023-07-17] MEDS: LEVAQUIN PREMIX IV 500 MG 500 MG/100 ML BAG IV SCH (08:36)
[2023-07-17] MEDS: COLACE CAP 100 MG PO SCH ×2 (08:37→20:17)
[2023-07-17] MEDS ORDERED: NORVASC TAB 5 MG PO SCH (09:00)
[2023-07-17] MEDS ORDERED: LINZESS PO SCH (09:00)
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
[2023-07-17] MEDS: SNACK - Diabetic Appropriate PO SCH (20:19)
[2023-07-17] MEDS: VALIUM PO PRN (23:05)
[2023-07-18] MEDS: NS 1,000 ML IV 1,000 ML IV SCH ×4 (00:02→16:30)
[2023-07-18] MEDS ORDERED: TOPROL XL PO ONE ×3 (02:36→09:00)
[2023-07-18] MEDS: TOPROL XL PO SCH (02:37)
[2023-07-18 05:33] LABS: BASOPHILS # (AUTO) 0.1 X10^3/uL (0.0-0.1); BASOPHILS % (AUTO) 0.7 % (0.2-1.0); EOSINOPHILS # (AUTO) 0.1 x10^3/uL (0.0-0.2); HEMATOCRIT 37.8 % (36.0-47.0); HEMOGLOBIN 11.9 g/dL (12.0-16.0); LYMPHOCYTES # (AUTO) 1.6 X10^3/uL (1.3-2.9); LYMPHOCYTES % (AUTO) 17.9 % (21.0-51.0); MEAN CORPUSCULAR HGB CONC 31.6 g/dL (33.0-35.0); MEAN CORPUSCULAR VOLUME 82.2 fL (80.0-100.0); MEAN PLATELET VOLUME 10.5 fL (7.4-11.0); MONOCYTES # (AUTO) 0.6 x10^3/uL (0.3-0.8); MONOCYTES % (AUTO) 6.4 % (0.0-13.0); NEUTROPHILS # (AUTO) 6.5 x10^3/uL (2.2-4.8); PLATELET COUNT 148 X10^3/uL (150.0-450.0); RED BLOOD COUNT 4.59 X10^6/uL (3.5-5.4); RED CELL DISTRIBUTION WIDTH 19.9 % (11.6-16.5); WHITE BLOOD COUNT 8.8 X10^3/uL (3.6-10.0)
[2023-07-18 05:51] LABS: ALANINE AMINOTRANSFERASE 13 Units/L (12-78); ALBUMIN 2.2 g/dL (3.4-5.0); ALKALINE PHOSPHATASE 145 Units/L (46-116); ASPARTATE AMINO TRANSFERASE 11 Units/L (15-37); BLOOD UREA NITROGEN 5 mg/dL (7-18); CALCIUM 7.9 mg/dL (8.5-10.1); CARBON DIOXIDE 23.9 mmol/L (21-32); CHLORIDE 106 mmol/L (98-107); COR CA(FOR HYPOALB) 9.3 mg/dL (8.5-10.1); COR NA(FOR HYPERGLY) 141 mmol/L (136-145); CREATININE 0.64 mg/dL (0.55-1.02); GLUCOSE 294 mg/dL (65-99); MAGNESIUM 1.5 mg/dL (2.0-2.9); POTASSIUM 3.9 mmol/L (3.5-5.1); SODIUM 136 mmol/L (136-145); eGFR NON BLACK RACES > 60 (>60)
[2023-07-18] MEDS ORDERED: CONSULT PHARMACY - POTASSIUM & MAGNESIUM XX SCH (07:00)
[2023-07-18] MEDS ORDERED: MAG-OX TAB PO SCH (07:00)
[2023-07-18] MEDS ORDERED: LINZESS PO SCH (09:00)
[2023-07-18] MEDS: LEVAQUIN PREMIX IV 500 MG 500 MG/100 ML BAG IV SCH (09:37)
[2023-07-18] MEDS: COLACE CAP 100 MG PO SCH ×2 (09:37→21:00)
[2023-07-18] MEDS: FARXIGA PO SCH (09:37)
[2023-07-18] MEDS: MICARDIS PO SCH (09:37)
[2023-07-18] MEDS: NORVASC TAB 5 MG PO SCH (09:38)
[2023-07-18] MEDS: K-DUR TAB 20 MEQ PO SCH ×2 (09:38→20:36)
[2023-07-18] MEDS: GLUCOPHAGE XR 24-HR PO SCH ×2 (09:38→20:36)
[2023-07-18] MEDS: ACTOS PO SCH (09:38)
[2023-07-18] MEDS: LOVENOX INJ 40 MG SYR SC SCH (09:51)
[2023-07-18] MEDS ORDERED: NovoLIN R (or HumuLIN R) SUBCUT ONE (10:52)
[2023-07-19] MEDS: NS 1,000 ML IV 1,000 ML IV SCH ×3 (00:16→10:12)
[2023-07-19 05:15] LABS: BASOPHILS # (AUTO) 0.1 X10^3/uL (0.0-0.1); BASOPHILS % (AUTO) 1.3 % (0.2-1.0); EOSINOPHILS # (AUTO) 0.1 x10^3/uL (0.0-0.2); HEMATOCRIT 40.2 % (36.0-47.0); HEMOGLOBIN 12.5 g/dL (12.0-16.0); LYMPHOCYTES # (AUTO) 1.4 X10^3/uL (1.3-2.9); LYMPHOCYTES % (AUTO) 17.5 % (21.0-51.0); MEAN CORPUSCULAR HEMOGLOBIN 25.8 pg (27.0-34.0); MEAN CORPUSCULAR VOLUME 83.2 fL (80.0-100.0); MEAN PLATELET VOLUME 10.3 fL (7.4-11.0); MONOCYTES # (AUTO) 0.5 x10^3/uL (0.3-0.8); MONOCYTES % (AUTO) 6.4 % (0.0-13.0); NEUTROPHILS % (AUTO) 73.8 % (42.0-75.0); PLATELET COUNT 150 X10^3/uL (150.0-450.0); RED BLOOD COUNT 4.83 X10^6/uL (3.5-5.4); RED CELL DISTRIBUTION WIDTH 19.5 % (11.6-16.5); WHITE BLOOD COUNT 8.1 X10^3/uL (3.6-10.0)
[2023-07-19 05:23] LABS: ALANINE AMINOTRANSFERASE 13 Units/L (12-78); ALBUMIN 2.5 g/dL (3.4-5.0); ALKALINE PHOSPHATASE 136 Units/L (46-116); ASPARTATE AMINO TRANSFERASE 10 Units/L (15-37); BLOOD UREA NITROGEN 7 mg/dL (7-18); CALCIUM 8.7 mg/dL (8.5-10.1); CARBON DIOXIDE 19.2 mmol/L (21-32); CHLORIDE 105 mmol/L (98-107); COR CA(FOR HYPOALB) 9.9 mg/dL (8.5-10.1); COR NA(FOR HYPERGLY) 134 mmol/L (136-145); CREATININE 0.69 mg/dL (0.55-1.02); GLUCOSE 174 mg/dL (65-99); MAGNESIUM 1.5 mg/dL (2.0-2.9); POTASSIUM 4.8 mmol/L (3.5-5.1); SODIUM 132 mmol/L (136-145); TOTAL PROTEIN 6.7 g/dL (6.4-8.2); eGFR NON BLACK RACES > 60 (>60)
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
[2023-07-19] MEDS ORDERED: CONSULT PHARMACY - POTASSIUM & MAGNESIUM XX SCH (07:00)
[2023-07-19] MEDS ORDERED: TOPROL XL PO ONE (08:02)
[2023-07-19] MEDS ORDERED: MAGNESIUM SULFATE 1 GRAM/100 mL PREMIX 1 G/100 ML BAG IV SCH (08:45)
[2023-07-19] MEDS ORDERED: MAG-OX TAB PO SCH (09:00)
[2023-07-19] MEDS: LOVENOX INJ 40 MG SYR SC SCH (09:14)
[2023-07-19] MEDS: LEVAQUIN PREMIX IV 500 MG 500 MG/100 ML BAG IV SCH (09:14)
[2023-07-19] MEDS: TOPROL XL PO SCH (09:14)
[2023-07-19] MEDS: MICARDIS PO SCH (09:14)
[2023-07-19] MEDS: K-DUR TAB 20 MEQ PO SCH ×2 (09:14→20:11)
[2023-07-19] MEDS: FARXIGA PO SCH (09:15)
[2023-07-19] MEDS: GLUCOPHAGE XR 24-HR PO SCH ×2 (09:15→20:11)
[2023-07-19] MEDS: NORVASC TAB 5 MG PO SCH (09:15)
[2023-07-19] MEDS: ACTOS PO SCH (09:15)
[2023-07-19] MEDS: VALIUM PO PRN (09:21)
[2023-07-19] MEDS ORDERED: MICARDIS PO SCH (09:30)
[2023-07-19] MEDS: COLACE CAP 100 MG PO SCH ×2 (10:12→21:11)
[2023-07-19] MEDS ORDERED: LEXAPRO ONE (10:38)
[2023-07-19] MEDS: NS 1,000 ML IV 1,000 ML with MAGNESIUM SULFATE 50% INJ VIAL 1 G IV SCH ×4 (10:46→20:11)
[2023-07-19] MEDS: LEXAPRO PO SCH (10:46)
[2023-07-19 12:10] VITALS: O2SAT 100
[2023-07-19 19:41] VITALS: RESP 18
[2023-07-19] MEDS ORDERED: ZOFRAN INJ 4 MG VIAL IVP PRN (20:28)
[2023-07-20] MEDS: NS 1,000 ML IV 1,000 ML with MAGNESIUM SULFATE 50% INJ VIAL 1 G IV SCH ×6 (00:49→10:10)
[2023-07-20] MEDS: VALIUM PO PRN (04:16)
[2023-07-20 05:28] LABS: BASOPHILS # (AUTO) 0.1 X10^3/uL (0.0-0.1); BASOPHILS % (AUTO) 0.8 % (0.2-1.0); EOSINOPHILS % (AUTO) 0.1 % (0.9-2.9); HEMATOCRIT 42.8 % (36.0-47.0); HEMOGLOBIN 13.5 g/dL (12.0-16.0); LYMPHOCYTES # (AUTO) 1.3 X10^3/uL (1.3-2.9); LYMPHOCYTES % (AUTO) 16.8 % (21.0-51.0); MEAN CORPUSCULAR HEMOGLOBIN 26.2 pg (27.0-34.0); MEAN CORPUSCULAR HGB CONC 31.6 g/dL (33.0-35.0); MONOCYTES # (AUTO) 0.4 x10^3/uL (0.3-0.8); MONOCYTES % (AUTO) 5.2 % (0.0-13.0); NEUTROPHILS # (AUTO) 6.1 x10^3/uL (2.2-4.8); NEUTROPHILS % (AUTO) 77.1 % (42.0-75.0); PLATELET COUNT 165 X10^3/uL (150.0-450.0); RED BLOOD COUNT 5.16 X10^6/uL (3.5-5.4); WHITE BLOOD COUNT 7.9 X10^3/uL (3.6-10.0)
[2023-07-20 05:44] LABS: ALANINE AMINOTRANSFERASE 14 Units/L (12-78); ALBUMIN 2.8 g/dL (3.4-5.0); ALKALINE PHOSPHATASE 133 Units/L (46-116); ASPARTATE AMINO TRANSFERASE 10 Units/L (15-37); BLOOD UREA NITROGEN 9 mg/dL (7-18); CALCIUM 8.8 mg/dL (8.5-10.1); CARBON DIOXIDE 15.8 mmol/L (21-32); CHLORIDE 102 mmol/L (98-107); COR CA(FOR HYPOALB) 9.8 mg/dL (8.5-10.1); COR NA(FOR HYPERGLY) 135 mmol/L (136-145); GLUCOSE 163 mg/dL (65-99); MAGNESIUM 2.1 mg/dL (2.0-2.9); POTASSIUM 4.5 mmol/L (3.5-5.1); SODIUM 133 mmol/L (136-145); eGFR NON BLACK RACES > 60 (>60)
[2023-07-20] MEDS ORDERED: TOPROL XL PO ONE (07:48)
[2023-07-20] MEDS ORDERED: LEXAPRO ONE (07:48)
[2023-07-20] MEDS ORDERED: APRESOLINE TAB 25 MG PO SCH (08:00)
[2023-07-20] MEDS: LOVENOX INJ 40 MG SYR SC SCH (08:40)
[2023-07-20] MEDS: LEVAQUIN PREMIX IV 500 MG 500 MG/100 ML BAG IV SCH (08:40)
[2023-07-20] MEDS: COLACE CAP 100 MG PO SCH (08:41)
[2023-07-20] MEDS: MICARDIS PO SCH (08:41)
[2023-07-20] MEDS: K-DUR TAB 20 MEQ PO SCH (08:42)
[2023-07-20] MEDS: LEXAPRO PO SCH (08:42)
[2023-07-20] MEDS: FARXIGA PO SCH (08:42)
[2023-07-20] MEDS: TOPROL XL PO SCH (08:42)
[2023-07-20] MEDS: NORVASC TAB 5 MG PO SCH (08:43)
[2023-07-20] MEDS: ACTOS PO SCH (08:43)
[2023-07-20] MEDS: GLUCOPHAGE XR 24-HR PO SCH (08:43)
[2023-07-20 10:09] VITALS: TEMP 97.8
[2023-07-20 10:42] VITALS: BP 120/56; PULSE 67
== END 2023-07-20 12:05 | disposition home health service (06) | DRG 637 ==
LOC: ER 04:39 → ICU 07:30 → MED/SURG 07-18 17:53
PROVIDERS: ADMIT Obstetrics & Gynecology Obstetrics; ATTEND Obstetrics & Gynecology Obstetrics
DX: J18.8 Other pneumonia, unspecified organism; E11.00 Type 2 diabetes mellitus with hyperosmolarity without nonketotic hyperglycemic-hyperosmolar coma (NKHHC); R55 Syncope and collapse; I10 Essential (primary) hypertension; R41.82 Altered mental status, unspecified; E11.65 Type 2 diabetes mellitus with hyperglycemia; F41.8 Other specified anxiety disorders; G40.89 Other seizures; K59.09 Other constipation; R63.4 Abnormal weight loss; E87.1 Hypo-osmolality and hyponatremia